=== PATIENT | male | born 1970 | race Caucasian/White ===

== ENCOUNTER 2025-04-28 02:27 | Emergency (ER) | payer BC, SELFPAY ==
[2025-04-28 02:35] VITALS: BMI 27.3
[2025-04-28 02:39] VITALS: BP 154/95; PULSE 88; RESP 18; TEMP 36.4; O2SAT 98
[2025-04-28] MEDS: cefTRIAXone 1,000 MG, LIDOCAINE 1% 20 ML 2.1 ML IM (04:35)
[2025-04-28] MEDS: KETOROLAC INJ 60 MG/2 ML VIAL IM (04:36)
[2025-04-28 04:55] VITALS: BP 145/91; PULSE 82; RESP 16; TEMP 36.8; O2SAT 99
--- NOTE | 2025-04-28 04:57 | PD.EDSKIN ---
ED Skin Abcess FB-RME/HPI General Chief complaint: Skin/Abscess/Foreign Body Stated complaint: poss abscess to L upper inner thigh Time Seen by Provider: 04/28/25 02:59 Arrival date/time: 04/28/25 02:27 This is a case of 54-year-old male with no medical history came in in the emergency room due to painful lump on the left left groin near the scrotal area with some redness and swelling for 1 week due to pain this patient decided to start consult here in the emergency room Limitations: no limitations Related Data Home Medications ?Medication ?Instructions ?Recorded ?Confirmed paroxetine HCl 10 mg tablet (Paxil) 100 mg PO DAILY 09/22/17 10/31/19 Previous Rx's ?Medication ?Instructions ?Recorded amlodipine 5 mg tablet 5 mg PO QDAY #30 tabs 10/31/19 ibuprofen 800 mg tablet 800 mg PO TID PRN pain #30 tabs 11/25/21 cephalexin 500 mg capsule 500 mg PO QID #40 caps 04/28/25 ketorolac 10 mg tablet 10 mg PO Q8H PRN pain #14 tabs 04/28/25 mupirocin 2 % topical ointment 1 applic topical BID #22 grams 04/28/25 (Centany) sulfamethoxazole 800 1 tab PO Q12H #20 tabs 04/28/25 mg-trimethoprim 160 mg tablet (Bactrim DS) Allergies Allergy/AdvReac Type Severity Reaction Status Date / Time codeine Allergy Mild RASH OR Verified 10/31/19 04:25 HIVES latex Allergy Mild Rash Verified 10/31/19 04:25 lactose Allergy Diarrhea Verified 10/31/19 04:25 Milk Containing Products Allergy Diarrhea Verified 10/31/19 04:25 (Dairy) (Milk Containing Products) Review of Systems Review of Systems Systems Reviewed: All systems reviewed, normal except as documented Constitutional Constitutional: Reports system reviewed and no additional complaints, except as documented and Reports as per HPI Cardiovascular Cardiovascular: Reports system reviewed and no additional complaints, except as documented and Reports as per HPI Respiratory Respiratory: Reports system reviewed and no additional complaints, except as documented and Reports as per HPI Gastrointestinal Gastrointestinal: Reports system reviewed and no additional complaints, except as documented and Reports as per HPI Genitourinary Genitourinary: Reports system reviewed and no additional complaints, except as documented and Reports as per HPI Musculoskeletal Musculoskeletal: Reports system reviewed and no additional complaints, except as documented and Reports as per HPI Integumentary/Breasts Skin/Breast: Reports system reviewed and no additional complaints, except as documented and Reports as per HPI Past Medical History Past Medical History NEUROLOGIC: Negative Neurological Disorders or Seizures CARDIAC: Negative Congestive Heart Failure RESPIRATORY: Negative Chronic Obstructive Pulmonary Disease (COPD) GASTROINTESTINAL: Negative Gastrointestinal Disorders GENITOURINARY: Negative Genitourinary Disorders or Renal Disease MUSCULOSKELETAL: Positive Musculoskeletal Disorders and Fractures (Left side rib 10 fx 3 wks ago) ENDOCRINE: Negative Diabetes Mellitus Type 1 or Diabetes Mellitus Type 2 HEMATOLOGIC: Negative Blood Disorders PSYCHO/SOCIAL: Positive Depression and Anxiety; Negative Recreational Drug Use OTHER HISTORY: Negative Autoimmune Disease, Blood Transfusions, Blood Transfusion Reaction, Anesthesia Reactions, Organ Transplant, Chemotherapy, Radiation Therapy, Hyperbaric Therapy, MRSA, VRSA or Vancomycin-Resistant Enterococci Family History FAMILY HISTORY: Negative Family Respiratory Disorders, Family Cardiac Disorders or Family Cancer Surgical History SURGICAL: Negative Organ Transplant Social History SMOKING STATUS: Current some day smoker ED Exam General Limitations: Present no limitations General appearance: Present alert, in no apparent distress and other (Patient is awake alert oriented not in distress nontoxic looking well-hydrated well no) Head Head exam: Present atraumatic, normocephalic and normal inspection Eye Eye exam: Present normal appearance, PERRL and EOMI ENT ENT exam: Present normal exam, normal oropharynx and mucous membranes moist Neck Neck exam: Present normal inspection, full ROM and trachea midline; Absent tenderness, meningismus, lymphadenopathy or thyromegaly Chest Chest inspection: Present normal inspection and symmetric chest wall rise; Absent tenderness Respiratory Respiratory exam: Present normal lung sounds bilaterally; Absent respiratory distress, wheezes, stridor, accessory muscle use or prolonged expiratory phase Cardiovascular Cardiovascular exam: Present regular rate, normal rhythm and normal heart sounds; Absent bradycardia, tachycardia, irregular rhythm, systolic murmur or diastolic murmur Abdominal Exam Abdominal exam: Present soft and normal bowel sounds; Absent distention, tenderness, guarding, rebound, rigidity, diminished bowel sounds or hyperactive bowel sounds exam: Present normal inspection and circumcised; Absent testicular tenderness, urethral discharge, scrotal swelling or normal testicular lie Expanded Exam exam: Present other (A 2 cm lump left groin near the scrotal area redness swelling suggestive of abscess no fluctuance not indurated no cellulitis no ulcer); Absent phimosis, paraphimosis, penile swelling, lesions, erythema, perineal induration, balanitis, priapism, ulcerations, inguinal hernia or inguinal lymphadenopathy Extremities Exam Extremities exam: Present normal inspection and full ROM Back Exam Back exam: Present normal inspection and full ROM Neurological Exam Neurological exam: Present alert, oriented X3, CN II-XII intact, normal gait and reflexes normal; Absent motor sensory deficit Psychiatric Psychiatric exam: Present normal affect and normal mood Skin Skin exam: Present warm, dry, intact, normal color and other (Abscess on the left inguinal area) Course Quality Measures none Orders Category Date Time Status Ketorolac Inj [Toradol Inj] Med 04/28/25 03:02 Discontinued 60 mg IM X1 ONE cefTRIAXone [Rocephin] 1,000 mg Med 04/28/25 03:02 Discontinued Lidocaine 1% 20 ml [Xylocaine 1% 20 ML] 2.1 ml IM X1 Vital Signs Vital signs: Vital Signs Temperature 97.5 F 04/28/25 02:39 Pulse Rate 88 04/28/25 02:39 Respiratory Rate 18 04/28/25 02:39 Blood Pressure 154/95 H 04/28/25 02:39 Pulse Oximetry (%) 98 04/28/25 02:39 Oxygen Delivery Method Room Air 04/28/25 02:39 Oxygen saturation is 98% Skin / Abscess / Foreign Body MDM Narrative MDM Narrative:: This is a case of 54-year-old male with no medical history came in in the emergency room due to painful lump on the left left groin near the scrotal area with some redness and swelling for 1 week due to pain this patient decided to start consult here in the emergency room physical examination patient is awake alert oriented not in distress nontoxic looking vital signs stable BP stable nontachycardic nontachypneic patient is afebrile patient noted to have 2 cm painful lump on the left groin tender to touch warm to touch no fluctuance not indurated suggestive of abscess no cellulitis no ulcer ROM intact neurovascular intact the rest of the physical examination neurological exam is normal based on my physical examination patient symptoms suggestive of abscess at the time of exam incision and drainage cannot be done because the abscess is still hide patient was advised to return in 2 days for reevaluation of abscess and possible incision and drainage patient was given ceftriaxone IM here in the emergency room and was discharged with cephalexin and Bactrim patient will follow-up with PCP in 2 days for reevaluation worsening symptoms return to the emergency room immediately or call 911 Patient was discharged with comfortable condition walking with stable gait. Patient verbalized no further complains explained diagnosis and answered patient question. Patient is comfortable with the proposed management plan including the need to follow up with his/her primary care physician and any specialist if applicable Discussed patient for any urgent condition or worsening sx, He/She needed to go to emergency room immediately or call 911. Patient acknowledge the responsibility to follow up as instructed and to monitor her/his symptoms. For any persistence of the symptoms for more than 3-5 days return precaution advised. Discussed the result of the test and was given printed discharge instruction Patient data External records reviewed:: [facility] previous records Clinical information provided by:: patient Social determinants that could affect healthcare access:: none Patient has the following chronic illnesses:: None How is presenting disease/condition affected by chronic disease/condition?: no chronic disease Evaluation data The following diagnostics were reviewed and interpreted by me:: other (specify) Lab and/or radiology exams considered but not ordered:: None Interpretation Summary: None Medications / Prescriptions Medications or Prescriptions considered but not ordered:: Given Medication administrations:: Medication Administration History Discontinued Medications Ceftriaxone Sodium 1,000 mg/ (Lidocaine HCl 2.1 ml) 0 mg IM X1 ONE Stop: 04/28/25 03:03 Last Admin: 04/28/25 04:35 Dose: 1,000 mg Documented By: GUALBERTO Ketorolac Tromethamine (Ketorolac Inj 60 Mg/2 Ml Vial) 60 mg IM X1 ONE Stop: 04/28/25 03:03 Last Admin: 04/28/25 04:36 Dose: 60 mg Documented By: GUALBERTO Given Consultations Consultation(s) initiated? (list below): No Diagnosis Skin/Abscess Differential Diagnosis: abscess of skin or subcutaneous tissue and cellulitis Most likely diagnosis given after review of the tests above:: Abscess Admission Indicated Admission indicated?: not indicated Explain why admission is indicated or not indicated:: Not indicated Admission Request Was there a request for admission?: No Admission Attestation Admission request attestation: Not indicated Disposition Plan Disposition Plan: Discharge Discharge Attestation Discharge Attestation: The patient and all family members were given an opportunity to ask questions and understood the discharge instructions. Discharge instructions specifically effects, indications for sooner follow up or return to the emergency department, and the expected course of current diagnosis. Patient condition: Stable Discharge Plan Plan Patient Disposition: HOME (Self Care) Patient condition on transfer: Stable Prescriptions/Referrals Prescriptions/Med Rec: New cephalexin 500 mg capsule 500 mg PO QID Qty: 40 0RF sulfamethoxazole-trimethoprim [Bactrim DS] 800-160 mg tablet 1 tab PO Q12H Qty: 20 0RF ketorolac 10 mg tablet 10 mg PO Q8H PRN (Reason: pain) Qty: 14 0RF Rx Instructions: maximum total duration of 5 days from all oral, intranasal, or parenteral formulations mupirocin [Centany] 2 % ointment 1 applic topical BID Qty: 22 0RF No Action paroxetine HCl [Paxil] 10 mg Tablet 100 mg PO DAILY amlodipine 5 mg tablet 5 mg PO QDAY Qty: 30 0RF ibuprofen 800 mg tablet 800 mg PO TID PRN (Reason: pain) Qty: 30 0RF Problem List Clinical Impression: Abscess of groin, left Patient/Caregiver Discharge Instructions Education Materials: ED Abscess Antibiotic ... Additional Instructions: Follow-up with your primary care physician in 2 days for reevaluation return to the emergency room in 2 days for reevaluation and possible incision and drainage worsening symptoms or any emergent concern call 911 or go to the nearest emergency room warm compresses advised take your medication and finish the course of antibiotic keep the area clean and dry Print Language: Israeli Stand Alone Forms: Mir[employer] Award Info., Work/School Release, Patient Portal Info Letter PA/ALBERTO Supervising Physician PA/ALBERTO Supervising Physician: Dr. Jennifer Vasquez
== END 2025-04-28 05:06 | disposition home or self-care (01) ==
LOC: SERX 05:15
PROVIDERS: Emergency Provider Emergency Medicine
DX: L02.214 Cutaneous abscess of groin (principal)
CPT/HCPCS: 96372; 99282; J0696; J1885; J3490

== ENCOUNTER → 2025-06-11 | Outpatient (CLI) | payer BC, SELFPAY ==
--- NOTE | 2025-06-11 14:00 | XR_ITS ---
Examination: Retroperitoneal ultrasound, complete Technique: Multiple high resolution grayscale images of the retroperitoneum obtained, including kidneys and bladder. Exam date and time: June 11, 2025, 1403 hours INDICATIONS: Macroscopic hematuria on urine examination this week FINDINGS: Right kidney 11.4 cm cortex 1.7 cm Left kidney 10.0 cm renal cortex 1.6 cm Mild renal scarring No renal calculi or hydronephrosis No bladder mass or bladder calculi Bladder prevoid volume 297 cc) , Post void volume 44 cc Prostate 5.1 x 3.5 x 4.9 cm volume 44 cc no prostate nodules IMPRESSION: Bilateral renal cortical thinning Mild bilateral renal scarring No hydronephrosis
[2025-06-11 14:36] LABS: Collection Type, Urine Clean Catch; Squamous Epithelial Cell,Urine 0 /hpf (0-5)
[2025-06-11 16:01] LABS: Bacteria,Urine Rare; Bilirubin,Urine Negative (Negative); Blood,Urine Negative (Negative); Clarity,Urine Clear (Clear/Hazy); Color,Urine Colorless (Lt Yel-Yel); Glucose, Urine Negative (Negative); Ketones,Urine Negative (Negative); Leukocyte Esterase,Urine Negative (Negative); Nitrite,Urine Negative (Negative); PH,Urine 6.5 (5.0-7.0); Protein,Urine Negative (Neg - Trace); RBC,Urine 1 /hpf (0-3); Specific Gravity,Urine 1.003 (1.001-1.035); Urobilinogen,Urine Negative mg/dL (0.0-1.0); WBC,Urine < 1 /hpf (0-5)
== END | disposition home or self-care (01) ==
LOC: SDIM 14:29 → SLDO 14:37
PROVIDERS: PCP Nurse Practitioner Family; Referring Provider Nurse Practitioner Family; Visit Provider Radiology Diagnostic Radiology
DX: N28.89 Other specified disorders of kidney and ureter (principal); Z00.00 Encounter for general adult medical examination without abnormal findings; R31.29 Other microscopic hematuria
CPT/HCPCS: 76770; 81001; 87086

== ENCOUNTER → 2025-06-18 | Outpatient (CLI) | payer BC, SELFPAY ==
[2025-06-18 15:47] LABS: Basophils # (Auto) 0.1 Thou/mm3 (0.0-0.2); Basophils % (Auto) 1 % (0-2.5); Eosinophils # (Auto) 0.1 Thou/mm3 (0.0-0.5); Eosinophils % (Auto) 1 % (0-10); Hematocrit 49.3 % (41.0-53.0); Hemoglobin 16.7 g/dL (13.5-16.0); Immature Granulocytes Auto 0.03 Thou/mm3 (0.00-0.00); Lymphocytes # (Auto) 2.4 Thou/mm3 (1.0-4.8); Lymphocytes % (Auto) 25 % (10-50); Mean Corpuscular HGB Conc 33.9 g/dl (31.0-37.0); Mean Corpuscular Hemoglobin 31.0 pg (25.0-35.0); Mean Corpuscular Volume 92 fL (80-100); Monocytes # (Auto) 0.8 Thou/mm3 (0.0-0.8); Monocytes % (Auto) 8 % (0-12); Neutrophils # (Auto) 6.3 Thou/mm3 (1.8-7.7); Neutrophils % (Auto) 65 % (37-80); Nucleated Red Blood Cell # 0.00 Thou/mm3 (0.00-0.00); Nucleated Red Blood Cell % 0 /100 WBC (0); Platelet Count 223 Thou/mm3 (140-440); RDW Standard Deviation 48.6 fL (35.1-43.9); Red Blood Count 5.38 Miln/mm3 (4.50-5.90); White Blood Count 9.7 Thou/mm3 (3.8-10.6)
[2025-06-18 15:58] LABS: Glucose Estimated Average 91 mg/dL (80-131); Hemoglobin A1C 4.8 % Hgb (4.8-6.0)
[2025-06-18 15:59] LABS: Prostate Specific Antigen 1.21 ng/mL (0-4.00)
[2025-06-18 16:10] LABS: Alanine Aminotransferase 34 U/L (10-49); Albumin, Serum 4.4 gm/dL (3.5-5.0); Albumin/Globulin Ratio 1.6 (1.2-2.2); Alkaline Phosphatase 53 U/L (46-116); Anion Gap 9 (7-16); Aspartate Amino Transferase 52 U/L (0-34); BUN/Creatinine Ratio 12 Ratio (12-20); Bilirubin,Total 1.9 mg/dL (0.3-1.2); Blood Urea Nitrogen 14 mg/dL (9-23); Calcium 9.0 mg/dL (8.3-10.6); Calcium (Corrected) 9.0 mg/dL (8.5-10.1); Carbon Dioxide 28.1 mMol/L (20.0-31.0); Cardiac Risk Estimate 2.5 RATIO (4.0-6.7); Chloride 103 mMol/L (98-107); Cholesterol 174 mg/dL (132-200); Creatinine (Component) 1.2 mg/dL (0.6-1.3); Globulin 2.7 gm/dL (2.3-3.5); Glucose 69 mg/dL (74-106); HDL Cholesterol 69 mg/dL (40-60); LDL Cholesterol,Calculated 97 mg/dL (0-130); Magnesium 1.9 mg/dL (1.6-2.6); Osmolality,Calculated 277 (275-295); Potassium 3.8 mMol/L (3.4-5.1); Sodium 140 mMol/L (136-145); Total Protein 7.1 gm/dL (5.7-8.2); Triglycerides 42 mg/dL (30-150); eGFR > 60 See Note
[2025-06-18 16:37] LABS: Hepatitis C Antibody Non Reactive (Non React); Vitamin D 25 Hydroxy Total 38.7 ng/mL (7.3-40.2)
[2025-06-25 17:50] LABS: HCV RNA, PCR <15 NOT DETECTED IU/mL
[2025-06-26 06:21] LABS: HCV RNA, PCR Log IU <1.18 NOT DETECTED Log IU/mL
== END | disposition home or self-care (01) ==
LOC: COPL 13:15
PROVIDERS: PCP Nurse Practitioner Family; Referring Provider Nurse Practitioner Family; Visit Provider Nurse Practitioner Family
DX: Z00.00 Encounter for general adult medical examination without abnormal findings (principal); R31.29 Other microscopic hematuria; R19.5 Other fecal abnormalities
CPT/HCPCS: 36415; 80053; 80061; 82306; 83036; 83735; 84153; 85025; 86803; 87522